=== PATIENT | male | born 2000 | race Caucasian/White ===

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

== ENCOUNTER 2022-10-03 17:07 | Emergency (ER) | payer MEDICAID ==
[~2022-10-03] VITALS: Ht 175.3 cm; Wt 70.5 kg
[2022-10-03 17:12] VITALS: TEMP 97.8
[2022-10-03] MEDS ORDERED: CRUTCHES MC (17:41)
[2022-10-03 18:02] VITALS: BP 125/85; PULSE 60
== END 2022-10-03 18:03 | disposition home or self-care (01) ==
LOC: COL.ER 17:07
DX: S93.402A Sprain of unspecified ligament of left ankle, initial encounter (principal); Z28.310 Unvaccinated for COVID-19; X50.1XXA Overexertion from prolonged static or awkward postures, initial encounter